=== PATIENT | male | born 1980 | race African-American/Black ===

== ENCOUNTER 2021-05-20 18:42 | Emergency (ER) | payer OTHER, SELFPAY | END 2021-05-20 20:46 | disposition home or self-care (01) | LOC: ERS 18:42 | DX: S16.1XXA Strain of muscle, fascia and tendon at neck level, initial encounter (principal); S63.502A Unspecified sprain of left wrist, initial encounter; F17.210 Nicotine dependence, cigarettes, uncomplicated; V89.2XXA Person injured in unspecified motor-vehicle accident, traffic, initial encounter | CPT/HCPCS: 72125 ==